=== PATIENT | female | born 1945 | race Caucasian/White ===

== ENCOUNTER 2018-02-14 09:08 | Emergency (ER) | payer MEDICARE, MEDICAID ==
[~2018-02-14] VITALS: Ht 162.6 cm; Wt 63.6 kg
[2018-02-14 09:30] VITALS: BP 142/87
[2018-02-14] MEDS ORDERED: HYDROcodone/acetaminophen 5mg/325mg tablet PO ONE (10:00)
[2018-02-14] MEDS ORDERED: ibuprofen tablet 400 MG TABLET PO ONE (10:20)
[2018-02-14] MEDS ORDERED: ibuprofen 200mg tablet PO ONE (10:30)
[2018-02-14] MEDS ORDERED: TRAM50TA2 PO (10:52)
[2018-02-14] MEDS ORDERED: CEPH500C5 PO (10:58)
== END 2018-02-14 11:10 | disposition home or self-care (01) ==
LOC: ER 09:08
DX: S42.031A Displaced fracture of lateral end of right clavicle, initial encounter for closed fracture (principal); S13.4XXA Sprain of ligaments of cervical spine, initial encounter; S40.011A Contusion of right shoulder, initial encounter; S60.512A Abrasion of left hand, initial encounter; S00.212A Abrasion of left eyelid and periocular area, initial encounter; I10 Essential (primary) hypertension; M19.90 Unspecified osteoarthritis, unspecified site; F17.210 Nicotine dependence, cigarettes, uncomplicated; V98.8XXA Other specified transport accidents, initial encounter; Y93.89 Activity, other specified; Y92.89 Other specified places as the place of occurrence of the external cause; Y99.9 Unspecified external cause status
CPT/HCPCS: 70450; 71045; 72125; 73030; 99284

== ENCOUNTER 2021-01-23 13:45 | Emergency (ER) | payer BC, MEDICAID ==
[~2021-01-23] VITALS: Ht 172.7 cm; Wt 52.3 kg
[2021-01-23 14:13] VITALS: BP 160/93
== END 2021-01-23 20:21 | disposition left against medical advice (07) ==
LOC: ER 13:45
DX: M25.512 Pain in left shoulder (principal); I10 Essential (primary) hypertension; M19.90 Unspecified osteoarthritis, unspecified site; F41.9 Anxiety disorder, unspecified
CPT/HCPCS: 73030; 99283

== ENCOUNTER 2021-06-19 19:49 | Inpatient (IN) | payer BC, MEDICAID ==
[~2021-06-19] VITALS: Ht 172.7 cm; Wt 47.0 kg
[2021-06-19 20:30] LABS: BASOPHILS % (AUTO) 0.1 % (0-1); EOSINOPHILS % (AUTO) 0 % (0-6); HEMATOCRIT 41.5 % (35.0-45.0); HEMOGLOBIN 14.2 g/dl (12.0-16.0); LYMPHOCYTES # (AUTO) 0.6 X10'3 (1.1-4.8); LYMPHOCYTES % (AUTO) 7.2 % (21-51); MEAN CORPUSCULAR HEMOGLOBIN 34.4 PG (27.0-31.0); MEAN CORPUSCULAR HGB CONC 34.1 g/dL (33.0-36.5); MEAN CORPUSCULAR VOLUME 100.7 FL (78-98); MONOCYTES # (AUTO) 0.8 X10'3 (0-0.9); MONOCYTES % (AUTO) 10.7 % (2-12); NEUTROPHILS # (AUTO) 6.3 X10'3 (1.8-7.7); PLATELET COUNT 210 X10'3 (140-440); RED BLOOD COUNT 4.13 X10'6 (4.20-5.60); RED CELL DISTRIBUTION WIDTH 12.7 % (11.5-14.5); WHITE BLOOD COUNT 7.6 X10'3 (4.5-11.0)
[2021-06-19 20:52] LABS: ALANINE AMINOTRANSFERASE 32 U/L (12-78); ALBUMIN 3.2 G/DL (3.4-5.0); ALBUMIN/GLOBULIN RATIO 0.8 (1.1-1.5); ALKALINE PHOSPHATASE 102 IU/L (46-116); ANION GAP 11 (8-16); ASPARTATE AMINO TRANSFERASE 33 U/L (10-37); BILIRUBIN,TOTAL 0.6 MG/DL (0.1-1.0); BLOOD UREA NITROGEN 8 MG/DL (7-18); BUN/CREATININE RATIO 21.1 (6.6-38.0); CALCIUM 8.9 MG/DL (8.5-10.1); CHLORIDE 86 MMOL/L (99-107); CREATININE 0.38 MG/DL (0.40-0.90); GLUCOSE 132 MG/DL (70-104); POTASSIUM 3.3 MMOL/L (3.5-5.1); SODIUM 128 MMOL/L (135-145); TOTAL CARBON DIOXIDE 31.3 MMOL/L (24-32); TOTAL PROTEIN 7.1 G/DL (6.4-8.2); eGFR > 90 ML/MIN
--- NOTE | 2021-06-19 21:03 | NUR ---
Critical result of Tropi 213 from lab. ERP and charge notified. Pt pink, alert, no acute/resp distress. PIV site c/d/i intact. Bed down, wheels locked, rails 2/2 up.
[2021-06-19] MEDS ORDERED: aspirin 325mg tablet PO ONE (23:00)
[2021-06-19] MEDS ORDERED: iohexol 350MG/ML 100ml bottle IV ONE (23:00)
--- NOTE | 2021-06-19 23:06 | NUR ---
Pt to CT via bed. Pt pink, alert, no acute impending distress. PIV site c/d/i s complication or adverse rxn.
--- NOTE | 2021-06-19 23:18 | NUR ---
Pt back from CT, pt medicated as ordered s complication or adverse rxn. Pt pink, awake, alert, no acute/resp distress.
[2021-06-19] MEDS ORDERED: albuterol 2.5 MG/3 ML nebule NEB ONE (23:45)
[2021-06-20] MEDS ORDERED: normal saline 1000ML IV soln IVB ONE (00:40)
[2021-06-20] MEDS ORDERED: HYDROcodone/acetaminophen 5mg/325mg tablet PO PRN (01:15)
[2021-06-20] MEDS ORDERED: magnesium hydroxide 30ml (MOM) UD suspension PO PRN (01:15)
[2021-06-20] MEDS ORDERED: magnesium Cl slow-release 64mg tablet PO PRN (01:15)
[2021-06-20] MEDS ORDERED: potassium Cl 20 mEq SR tablet PO PRN (01:15)
[2021-06-20] MEDS ORDERED: ondansetron/PF 4mg/2ml inj IV PRN (01:15)
[2021-06-20] MEDS ORDERED: acetaminophen 325mg tablet PO PRN ×2 (01:15)
[2021-06-20] MEDS ORDERED: potassium CL 10mEq/100ml bag 100 ML IV PRN (01:15)
[2021-06-20] MEDS ORDERED: magnesium 4gm in 100ml NS 100 ML IV PRN (01:15)
[2021-06-20] MEDS ORDERED: CefTRIAXone 2gm/NS 100ml IVPB 100 ML IV ONE (01:15)
[2021-06-20] MEDS ORDERED: magnesium 2GM in 50ml NS 50 ML IV PRN (01:15)
--- NOTE | 2021-06-20 01:15 | NUR ---
Pt repositioned for comfort due to pain from wound on back. Pt pink, alert, no acute distress. Pt states she is having quite a bit of abd pain and pain from her wound.
[2021-06-20] MEDS: potassium Cl 20 mEq SR tablet PO PRN ×3 (03:26→17:47)
[2021-06-20] MEDS: albuterol 2.5 MG/3 ML nebule NEB SCH ×2 (04:00→08:11)
[2021-06-20 04:16] VITALS: BP 142/82
--- NOTE | 2021-06-20 05:30 | NUR ---
pt 2 cigarettes placed in chart
[2021-06-20 06:00] VITALS: BP 157/81
[2021-06-20] MEDS ORDERED: methylPREDNISolone sod succ 125mg/2ml vial IV SCH (08:00)
[2021-06-20] MEDS: K and/or MAG REPLACEMENT MC SCH ×2 (08:00→19:29)
[2021-06-20] MEDS: heparin, porcine 5000 units/ml vial SQ SCH ×2 (08:45→20:12)
[2021-06-20] MEDS ORDERED: BUDE10.2 INH (10:34)
[2021-06-20] MEDS ORDERED: CITA40TA22 PO (10:34)
[2021-06-20] MEDS ORDERED: AMLO5TAB PO (10:34)
[2021-06-20] MEDS ORDERED: ALBU8.5H17 INH (10:34)
[2021-06-20] MEDS ORDERED: MONT10TA21 PO (10:34)
[2021-06-20 11:00] VITALS: BP 144/71
[2021-06-20] MEDS: furosemide 20 MG/2 ML vial IV SCH ×2 (11:59→20:13)
[2021-06-20 12:34] LABS: BASOPHILS % (AUTO) 0.1 % (0-1); EOSINOPHILS % (AUTO) 0 % (0-6); HEMATOCRIT 43.3 % (35.0-45.0); HEMOGLOBIN 14.6 g/dl (12.0-16.0); LYMPHOCYTES # (AUTO) 0.3 X10'3 (1.1-4.8); LYMPHOCYTES % (AUTO) 3.8 % (21-51); MEAN CORPUSCULAR HEMOGLOBIN 34.2 PG (27.0-31.0); MEAN CORPUSCULAR HGB CONC 33.8 g/dL (33.0-36.5); MEAN CORPUSCULAR VOLUME 101.2 FL (78-98); MEAN PLATELET VOLUME 8.6 FL (7.4-10.4); MONOCYTES # (AUTO) 0.3 X10'3 (0-0.9); MONOCYTES % (AUTO) 3.6 % (2-12); NEUTROPHILS # (AUTO) 8.2 X10'3 (1.8-7.7); NEUTROPHILS % (AUTO) 92.5 % (42-75); PLATELET COUNT 231 X10'3 (140-440); RED BLOOD COUNT 4.27 X10'6 (4.20-5.60); RED CELL DISTRIBUTION WIDTH 12.9 % (11.5-14.5); WHITE BLOOD COUNT 8.9 X10'3 (4.5-11.0)
[2021-06-20 12:58] LABS: ANION GAP 11 (8-16); BLOOD UREA NITROGEN 7 MG/DL (7-18); BUN/CREATININE RATIO 17.5 (6.6-38.0); CALCIUM 8.7 MG/DL (8.5-10.1); CHLORIDE 91 MMOL/L (99-107); GLUCOSE 99 MG/DL (70-104); POTASSIUM 3.7 MMOL/L (3.5-5.1); SODIUM 132 MMOL/L (135-145); eGFR > 90 ML/MIN
[2021-06-20] MEDS: cefTRIAXone 1g/NS 100ml IVPB 100 ML IV SCH (13:36)
[2021-06-20] MEDS: azithromycin 250mg tablet PO SCH (13:52)
--- NOTE | 2021-06-20 14:09 | NUR ---
Malnutrition consult: Pt reports 24-33 lb wt loss with decreased appetite per malnutrition risk screen with RN. Per H&P pt is a very poor historian. Current documented wt results in an underweight BMI however is not scaled and no recent scaled wt hx in EMR. Pt with no documented decrease in muscle strength or significant edema. Pt currently lacks a minimum of two criteria for malnutrition. Will continue to follow and further monitor malnutrition criteria. Addendum: 06/20/21 at [address] Amended: Links added.
[2021-06-20 15:00] VITALS: BP 126/72
[2021-06-20] MEDS: methylPREDNISolone sod succ 125mg/2ml vial IV SCH (16:00)
[2021-06-20] MEDS: ipratropium/albuterol 3ml nebule NEB SCH ×3 (17:26→23:00)
[2021-06-20 18:00] VITALS: BP 145/54
--- NOTE | 2021-06-20 18:47 | NUR ---
Problems reprioritized. Patient report given, questions answered & plan of care reviewed with Jeri ALVARADO, pt stable at transfer of care.
[2021-06-20 22:00] VITALS: BP 126/63
[2021-06-21] MEDS: ipratropium/albuterol 3ml nebule NEB SCH ×6 (00:17→23:12)
[2021-06-21 02:00] VITALS: BP 140/80
[2021-06-21] MEDS: methylPREDNISolone sod succ 125mg/2ml vial IV SCH ×3 (02:01→16:58)
[2021-06-21 06:00] VITALS: BP 157/79
--- NOTE | 2021-06-21 06:54 | NUR ---
Problems reprioritized. Patient report given, questions answered & plan of care reviewed with PHILL ALVARADO.
[2021-06-21 07:27] LABS: BASOPHILS % (AUTO) 0.1 % (0-1); EOSINOPHILS % (AUTO) 0 % (0-6); HEMATOCRIT 43.3 % (35.0-45.0); HEMOGLOBIN 14.8 g/dl (12.0-16.0); LYMPHOCYTES # (AUTO) 0.4 X10'3 (1.1-4.8); LYMPHOCYTES % (AUTO) 5.3 % (21-51); MEAN CORPUSCULAR HEMOGLOBIN 34.9 PG (27.0-31.0); MEAN CORPUSCULAR HGB CONC 34.2 g/dL (33.0-36.5); MEAN CORPUSCULAR VOLUME 101.9 FL (78-98); MEAN PLATELET VOLUME 8.2 FL (7.4-10.4); MONOCYTES # (AUTO) 0.2 X10'3 (0-0.9); MONOCYTES % (AUTO) 3.1 % (2-12); NEUTROPHILS # (AUTO) 7.1 X10'3 (1.8-7.7); NEUTROPHILS % (AUTO) 91.5 % (42-75); PLATELET COUNT 259 X10'3 (140-440); RED BLOOD COUNT 4.25 X10'6 (4.20-5.60); RED CELL DISTRIBUTION WIDTH 12.7 % (11.5-14.5); WHITE BLOOD COUNT 7.8 X10'3 (4.5-11.0)
[2021-06-21 07:36] LABS: ALANINE AMINOTRANSFERASE 31 U/L (12-78); ALBUMIN 2.8 G/DL (3.4-5.0); ALBUMIN/GLOBULIN RATIO 0.8 (1.1-1.5); ALKALINE PHOSPHATASE 89 IU/L (46-116); ANION GAP 13 (8-16); ASPARTATE AMINO TRANSFERASE 25 U/L (10-37); BILIRUBIN,TOTAL 0.6 MG/DL (0.1-1.0); BLOOD UREA NITROGEN 13 MG/DL (7-18); CALCIUM 8.7 MG/DL (8.5-10.1); CHLORIDE 94 MMOL/L (99-107); GLUCOSE 92 MG/DL (70-104); PHOSPHORUS 2.7 MG/DL (2.3-4.5); SODIUM 136 MMOL/L (135-145); TOTAL CARBON DIOXIDE 29.4 MMOL/L (24-32); TOTAL PROTEIN 6.3 G/DL (6.4-8.2); eGFR > 90 ML/MIN
[2021-06-21] MEDS: K and/or MAG REPLACEMENT MC SCH ×2 (08:00→19:50)
[2021-06-21] MEDS: cefTRIAXone 1g/NS 100ml IVPB 100 ML IV SCH (08:02)
[2021-06-21] MEDS: furosemide 20 MG/2 ML vial IV SCH ×2 (08:03→19:49)
[2021-06-21] MEDS: citalopram 20mg tablet PO SCH (08:04)
[2021-06-21] MEDS: heparin, porcine 5000 units/ml vial SQ SCH ×2 (08:04→19:50)
[2021-06-21] MEDS: montelukast 10mg tablet PO SCH (08:04)
[2021-06-21] MEDS: azithromycin 250mg tablet PO SCH (08:05)
[2021-06-21] MEDS: amLODIPine 5mg tablet PO SCH (08:05)
[2021-06-21 11:00] VITALS: BP 131/69
[2021-06-21 18:00] VITALS: BP 118/56
[2021-06-21 22:00] VITALS: BP 161/75
[2021-06-22] MEDS: methylPREDNISolone sod succ 125mg/2ml vial IV SCH ×5 (00:09→19:25)
[2021-06-22 02:00] VITALS: BP 142/77
[2021-06-22] MEDS: ipratropium/albuterol 3ml nebule NEB SCH ×6 (03:29→23:23)
[2021-06-22 06:00] VITALS: BP 143/73
[2021-06-22 06:02] LABS: BASOPHILS % (AUTO) 0.1 % (0-1); EOSINOPHILS % (AUTO) 0 % (0-6); HEMATOCRIT 41.1 % (35.0-45.0); HEMOGLOBIN 13.9 g/dl (12.0-16.0); LYMPHOCYTES # (AUTO) 0.3 X10'3 (1.1-4.8); LYMPHOCYTES % (AUTO) 7.6 % (21-51); MEAN CORPUSCULAR HEMOGLOBIN 34.1 PG (27.0-31.0); MEAN CORPUSCULAR HGB CONC 33.7 g/dL (33.0-36.5); MEAN CORPUSCULAR VOLUME 101.1 FL (78-98); MEAN PLATELET VOLUME 8.1 FL (7.4-10.4); MONOCYTES # (AUTO) 0.3 X10'3 (0-0.9); MONOCYTES % (AUTO) 7.9 % (2-12); NEUTROPHILS # (AUTO) 3.1 X10'3 (1.8-7.7); NEUTROPHILS % (AUTO) 84.4 % (42-75); PLATELET COUNT 287 X10'3 (140-440); RED BLOOD COUNT 4.07 X10'6 (4.20-5.60); RED CELL DISTRIBUTION WIDTH 12.9 % (11.5-14.5); WHITE BLOOD COUNT 3.7 X10'3 (4.5-11.0)
[2021-06-22 06:19] LABS: ALANINE AMINOTRANSFERASE 27 U/L (12-78); ALBUMIN 2.9 G/DL (3.4-5.0); ALBUMIN/GLOBULIN RATIO 0.8 (1.1-1.5); ALKALINE PHOSPHATASE 78 IU/L (46-116); ANION GAP 4 (8-16); ASPARTATE AMINO TRANSFERASE 21 U/L (10-37); BILIRUBIN,TOTAL 0.4 MG/DL (0.1-1.0); BLOOD UREA NITROGEN 14 MG/DL (7-18); BUN/CREATININE RATIO 31.1 (6.6-38.0); CALCIUM 8.5 MG/DL (8.5-10.1); CHLORIDE 97 MMOL/L (99-107); CREATININE 0.45 MG/DL (0.40-0.90); GLUCOSE 121 MG/DL (70-104); PHOSPHORUS 3.2 MG/DL (2.3-4.5); POTASSIUM 3.7 MMOL/L (3.5-5.1); SODIUM 136 MMOL/L (135-145); TOTAL CARBON DIOXIDE 34.6 MMOL/L (24-32); TOTAL PROTEIN 6.4 G/DL (6.4-8.2); eGFR > 90 ML/MIN
--- NOTE | 2021-06-22 06:29 | NUR ---
Problems reprioritized. Patient report given, questions answered & plan of care reviewed with Nigel ALVARADO.
[2021-06-22] MEDS: cefTRIAXone 1g/NS 100ml IVPB 100 ML IV SCH (07:28)
[2021-06-22] MEDS: montelukast 10mg tablet PO SCH (07:32)
[2021-06-22] MEDS: furosemide 20 MG/2 ML vial IV SCH ×2 (07:32→19:22)
[2021-06-22] MEDS: heparin, porcine 5000 units/ml vial SQ SCH ×2 (07:32→19:22)
[2021-06-22] MEDS: azithromycin 250mg tablet PO SCH (07:33)
[2021-06-22] MEDS: citalopram 20mg tablet PO SCH (07:33)
[2021-06-22] MEDS: amLODIPine 5mg tablet PO SCH (07:33)
[2021-06-22] MEDS: K and/or MAG REPLACEMENT MC SCH ×2 (08:00→19:23)
[2021-06-22 11:00] VITALS: BP 125/60
--- NOTE | 2021-06-22 15:19 | NUR ---
O2 Sat at rest on room air:90___% If below 89%: Recovery O2 Sat at rest on _95__LPM:___%:___% via Nasal Canula (mask/nasal cannula, etc..) No further documentation is necessary. If O2 Sat did not drop below 89% on room air,ambulate patient on room air. O2 Sat while ambulating on room air:__80_% Recovery O2 Sat while ambulating on _93_LPM:___% No further documentation is necessary. If patient does not drop below 89% while ambulating, he/she does not qualify for home O2. Addendum: 06/22/21 at 1538 by Nigel Lunsford RN O2 Sat at rest on room air:_90__% If below 89%: Recovery O2 Sat at rest on __3_LPM:__95_%:___% via__nasal canula (mask/nasal cannula, etc..) No further documentation is necessary. If O2 Sat did not drop below 89% on room air,ambulate patient on room air. O2 Sat while ambulating on room air:_80__% Recovery O2 Sat while ambulating on 3___LPM:__93_% No further documentation is necessary. If patient does not drop below 89% while ambulating, he/she does not qualify for home O2.
[2021-06-22 18:00] VITALS: BP_SYST 125; BP_SYST 126; BP_DIAS 60; BP_DIAS 63
[2021-06-22] MEDS: lactose-reduced food (Ensure Enlive) - 237ml bottle PO SCH (18:00)
[2021-06-22] MEDS ORDERED: benzonatate 100mg capsule PO PRN (20:20)
[2021-06-23] VITALS (11 sets, daily range): BP systolic 116–137; BP diastolic 56–73
[2021-06-23] MEDS: ipratropium/albuterol 3ml nebule NEB SCH ×5 (04:10→19:53)
[2021-06-23 06:01] LABS: BASOPHILS % (AUTO) 0.1 % (0-1); EOSINOPHILS % (AUTO) 0 % (0-6); HEMATOCRIT 39.7 % (35.0-45.0); HEMOGLOBIN 13.5 g/dl (12.0-16.0); LYMPHOCYTES # (AUTO) 0.5 X10'3 (1.1-4.8); LYMPHOCYTES % (AUTO) 13.4 % (21-51); MEAN CORPUSCULAR HEMOGLOBIN 34.3 PG (27.0-31.0); MEAN CORPUSCULAR HGB CONC 34.1 g/dL (33.0-36.5); MEAN CORPUSCULAR VOLUME 100.6 FL (78-98); MEAN PLATELET VOLUME 7.4 FL (7.4-10.4); MONOCYTES # (AUTO) 0.6 X10'3 (0-0.9); MONOCYTES % (AUTO) 16.7 % (2-12); NEUTROPHILS # (AUTO) 2.6 X10'3 (1.8-7.7); NEUTROPHILS % (AUTO) 69.8 % (42-75); PLATELET COUNT 306 X10'3 (140-440); RED BLOOD COUNT 3.95 X10'6 (4.20-5.60); RED CELL DISTRIBUTION WIDTH 12.9 % (11.5-14.5); WHITE BLOOD COUNT 3.8 X10'3 (4.5-11.0)
[2021-06-23 06:17] LABS: ALANINE AMINOTRANSFERASE 28 U/L (12-78); ALBUMIN 2.9 G/DL (3.4-5.0); ALBUMIN/GLOBULIN RATIO 0.9 (1.1-1.5); ALKALINE PHOSPHATASE 71 IU/L (46-116); ANION GAP 4 (8-16); ASPARTATE AMINO TRANSFERASE 19 U/L (10-37); BILIRUBIN,TOTAL 0.4 MG/DL (0.1-1.0); BLOOD UREA NITROGEN 13 MG/DL (7-18); BUN/CREATININE RATIO 25.5 (6.6-38.0); CALCIUM 8.5 MG/DL (8.5-10.1); CHLORIDE 98 MMOL/L (99-107); CHOLESTEROL 190 MG/DL (0-200); CREATININE 0.51 MG/DL (0.40-0.90); GLUCOSE 121 MG/DL (70-104); HDL CHOLESTEROL 95 MG/DL (35-60); LDL CHOLESTEROL 77 MG/DL (50-100); MAGNESIUM 1.9 MG/DL (1.5-2.4); PHOSPHORUS 4.2 MG/DL (2.3-4.5); POTASSIUM 3.3 MMOL/L (3.5-5.1); SODIUM 140 MMOL/L (135-145); TOTAL PROTEIN 6.2 G/DL (6.4-8.2); TRIGLYCERIDES 65 MG/DL (20-135); eGFR > 90 ML/MIN
--- NOTE | 2021-06-23 06:37 | NUR ---
Problems reprioritized. Patient report given, questions answered & plan of care reviewed with Nigel ALVARADO.
[2021-06-23 06:54] LABS: PLATELET ESTIMATE NORMAL; TOTAL CELLS COUNTED 100
[2021-06-23] MEDS: lactose-reduced food (Ensure Enlive) - 237ml bottle PO SCH ×3 (08:00→18:00)
[2021-06-23] MEDS ORDERED: nitroGLYCERIN 0.4mg SUBLingual tab SL PRN (08:35)
[2021-06-23] MEDS ORDERED: regadenoson 0.4mg/5ml syringe IV PRN (08:35)
[2021-06-23] MEDS ORDERED: metoprolol tartrate 1mg/ml inj IV PRN (08:35)
[2021-06-23] MEDS ORDERED: potassium Cl 20 mEq SR tablet PO PRN (09:10)
[2021-06-23] MEDS ORDERED: potassium Cl 20mEq/100mL bag 100 ML IV PRN (09:10)
[2021-06-23] MEDS ORDERED: potassium Cl 40MEQ/1/2NS 520ml 520 ML IV PRN (09:10)
[2021-06-23] MEDS ORDERED: potassium Cl 40MEQ/250ML bag 250 ML IV PRN (09:10)
[2021-06-23] MEDS ORDERED: potassium CL 10mEq/100ml bag 100 ML IV PRN (09:10)
[2021-06-23] MEDS: citalopram 20mg tablet PO SCH (09:14)
[2021-06-23] MEDS: montelukast 10mg tablet PO SCH (09:14)
[2021-06-23] MEDS: amLODIPine 5mg tablet PO SCH (09:15)
[2021-06-23] MEDS: azithromycin 250mg tablet PO SCH (09:15)
[2021-06-23] MEDS: cefTRIAXone 1g/NS 100ml IVPB 100 ML IV SCH (09:16)
[2021-06-23] MEDS: heparin, porcine 5000 units/ml vial SQ SCH ×2 (09:16→19:39)
[2021-06-23] MEDS: methylPREDNISolone sod succ 125mg/2ml vial IV SCH ×2 (09:16→19:38)
[2021-06-23] MEDS: furosemide 20 MG/2 ML vial IV SCH ×2 (09:16→19:41)
[2021-06-23] MEDS ORDERED: aminophylline 500mg/20ml vial ONE (09:40)
[2021-06-23 13:53] LABS: HEMOGLOBIN A1C 4.6 % (4.5-6.2)
[2021-06-23] MEDS: K and/or MAG REPLACEMENT MC SCH (20:00)
[2021-06-24] MEDS: ipratropium/albuterol 3ml nebule NEB SCH ×3 (00:02→07:35)
[2021-06-24 02:00] VITALS: BP 97/58
[2021-06-24 06:00] VITALS: BP 139/67
[2021-06-24 06:11] LABS: ALANINE AMINOTRANSFERASE 30 U/L (12-78); ALBUMIN 2.8 G/DL (3.4-5.0); ALBUMIN/GLOBULIN RATIO 0.9 (1.1-1.5); ALKALINE PHOSPHATASE 67 IU/L (46-116); ANION GAP 2 (8-16); ASPARTATE AMINO TRANSFERASE 21 U/L (10-37); BILIRUBIN,TOTAL 0.4 MG/DL (0.1-1.0); BLOOD UREA NITROGEN 18 MG/DL (7-18); BUN/CREATININE RATIO 32.7 (6.6-38.0); CALCIUM 8.5 MG/DL (8.5-10.1); CHLORIDE 99 MMOL/L (99-107); CREATININE 0.55 MG/DL (0.40-0.90); GLUCOSE 113 MG/DL (70-104); MAGNESIUM 2.1 MG/DL (1.5-2.4); PHOSPHORUS 4.5 MG/DL (2.3-4.5); POTASSIUM 3.9 MMOL/L (3.5-5.1); SODIUM 141 MMOL/L (135-145); TOTAL CARBON DIOXIDE 39.9 MMOL/L (24-32); eGFR > 90 ML/MIN
[2021-06-24 06:16] LABS: BASOPHILS % (AUTO) 0.1 % (0-1); EOSINOPHILS % (AUTO) 0 % (0-6); HEMATOCRIT 41.6 % (35.0-45.0); HEMOGLOBIN 14.2 g/dl (12.0-16.0); LYMPHOCYTES # (AUTO) 0.7 X10'3 (1.1-4.8); LYMPHOCYTES % (AUTO) 16.5 % (21-51); MEAN CORPUSCULAR HEMOGLOBIN 34.7 PG (27.0-31.0); MEAN CORPUSCULAR HGB CONC 34.2 g/dL (33.0-36.5); MEAN CORPUSCULAR VOLUME 101.5 FL (78-98); MEAN PLATELET VOLUME 7.4 FL (7.4-10.4); MONOCYTES # (AUTO) 0.7 X10'3 (0-0.9); MONOCYTES % (AUTO) 17.3 % (2-12); NEUTROPHILS # (AUTO) 2.8 X10'3 (1.8-7.7); NEUTROPHILS % (AUTO) 66.1 % (42-75); PLATELET COUNT 320 X10'3 (140-440); RED BLOOD COUNT 4.09 X10'6 (4.20-5.60); WHITE BLOOD COUNT 4.2 X10'3 (4.5-11.0)
[2021-06-24] MEDS: K and/or MAG REPLACEMENT MC SCH (08:00)
[2021-06-24] MEDS: cefTRIAXone 1g/NS 100ml IVPB 100 ML IV SCH (08:07)
[2021-06-24] MEDS: heparin, porcine 5000 units/ml vial SQ SCH (08:08)
[2021-06-24 08:09] VITALS: BP_SYST 139
[2021-06-24] MEDS: furosemide 20 MG/2 ML vial IV SCH (08:09)
[2021-06-24] MEDS: citalopram 20mg tablet PO SCH (08:09)
[2021-06-24] MEDS: azithromycin 250mg tablet PO SCH (08:09)
[2021-06-24] MEDS: montelukast 10mg tablet PO SCH (08:09)
[2021-06-24] MEDS: amLODIPine 5mg tablet PO SCH (08:09)
[2021-06-24] MEDS: lactose-reduced food (Ensure Enlive) - 237ml bottle PO SCH (08:17)
[2021-06-24] MEDS ORDERED: CEFD300C3 PO (09:32)
[2021-06-24] MEDS ORDERED: PRED10TA23 PO (09:32)
--- NOTE | 2021-06-24 10:00 | NUR ---
Patient discharge home alert and orient , discharge instructions was discussed.
== END 2021-06-24 10:08 | disposition home or self-care (01) | DRG 190 ==
LOC: ER 19:49 → ED HOLD 06-20 01:19 → PCU 3S 06-20 03:00
PROVIDERS: ADMIT Internal Medicine; ATTEND Family Medicine
PROC: B32T1ZZ Computerized Tomography (CT Scan) of Left Pulmonary Artery using Low Osmolar Contrast (ICD-10-PCS; principal; 2021-06-19)
PROC: B3201ZZ Computerized Tomography (CT Scan) of Thoracic Aorta using Low Osmolar Contrast (ICD-10-PCS; 2021-06-19)
PROC: B32S1ZZ Computerized Tomography (CT Scan) of Right Pulmonary Artery using Low Osmolar Contrast (ICD-10-PCS; 2021-06-19)
PROC: 4A02XM4 Measurement of Cardiac Total Activity, External Approach (ICD-10-PCS; 2021-06-23)
PROC: 3E073KZ Introduction of Other Diagnostic Substance into Coronary Artery, Percutaneous Approach (ICD-10-PCS; 2021-06-23)
DX: J44.1 Chronic obstructive pulmonary disease with (acute) exacerbation (principal); I21.A1 Myocardial infarction type 2; E43 Unspecified severe protein-calorie malnutrition; I50.33 Acute on chronic diastolic (congestive) heart failure; E87.1 Hypo-osmolality and hyponatremia; Z68.1 Body mass index [BMI] 19.9 or less, adult; I11.0 Hypertensive heart disease with heart failure; Z20.822 Contact with and (suspected) exposure to COVID-19; M19.90 Unspecified osteoarthritis, unspecified site; F17.210 Nicotine dependence, cigarettes, uncomplicated; M81.0 Age-related osteoporosis without current pathological fracture; F41.9 Anxiety disorder, unspecified; R09.02 Hypoxemia; Z79.899 Other long term (current) drug therapy
CPT/HCPCS: 36415; 71045; 71275; 78452; 80048; 80053; 80061; 83036; 83605; 83735; 83880; 84100; 84145; 84443; 84484; 85007; 85025; 87040; 87081; 87635; 93005; 93017; 93306; 94640; 94760; 97161; 97530; 99285; A9500; C9803; G0378; J0280; J0696; J1644; J1940; J2930; J7030; Q9967

== ENCOUNTER 2021-09-15 19:15 | Emergency (ER) | payer BC, MEDICAID ==
[~2021-09-15] VITALS: Ht 172.7 cm; Wt 47.5 kg
[~2021-09-15 19:15] MED LIST: ALBU8.5H17 INH; AMLO5TAB PO; BUDE10.2 INH; CITA40TA22 PO; MONT10TA21 PO
[2021-09-15] MEDS ORDERED: folic acid 1mg/0.2ml inj IV ONE (19:20)
[2021-09-15] MEDS ORDERED: normal saline 1000ML IV soln IVB ONE (19:20)
[2021-09-15] MEDS ORDERED: thiamine 100mg/ml 2ml inj. IV ONE (19:20)
[2021-09-15 19:30] VITALS: BP 128/73
[2021-09-15 19:37] LABS: BASOPHILS # (AUTO) 0.1 X10'3 (0-0.2); BASOPHILS % (AUTO) 1.5 % (0-1); EOSINOPHILS # (AUTO) 0.1 X10'3 (0-0.9); EOSINOPHILS % (AUTO) 1.5 % (0-6); HEMATOCRIT 35.7 % (35.0-45.0); HEMOGLOBIN 12.1 g/dl (12.0-16.0); LYMPHOCYTES # (AUTO) 2.5 X10'3 (1.1-4.8); LYMPHOCYTES % (AUTO) 47.1 % (21-51); MEAN CORPUSCULAR HEMOGLOBIN 35.7 PG (27.0-31.0); MEAN CORPUSCULAR HGB CONC 33.9 g/dL (33.0-36.5); MEAN CORPUSCULAR VOLUME 105.5 FL (78-98); MEAN PLATELET VOLUME 7.3 FL (7.4-10.4); MONOCYTES # (AUTO) 0.4 X10'3 (0-0.9); MONOCYTES % (AUTO) 7.1 % (2-12); NEUTROPHILS # (AUTO) 2.3 X10'3 (1.8-7.7); NEUTROPHILS % (AUTO) 42.8 % (42-75); PLATELET COUNT 213 X10'3 (140-440); RED BLOOD COUNT 3.38 X10'6 (4.20-5.60); RED CELL DISTRIBUTION WIDTH 12.9 % (11.5-14.5); WHITE BLOOD COUNT 5.4 X10'3 (4.5-11.0)
[2021-09-15 19:50] LABS: ALANINE AMINOTRANSFERASE 35 U/L (12-78); ALBUMIN 2.9 G/DL (3.4-5.0); ALBUMIN/GLOBULIN RATIO 1.1 (1.1-1.5); ALKALINE PHOSPHATASE 84 IU/L (46-116); ANION GAP 7 (8-16); ASPARTATE AMINO TRANSFERASE 37 U/L (10-37); BILIRUBIN,TOTAL 0.2 MG/DL (0.1-1.0); BLOOD UREA NITROGEN 5 MG/DL (7-18); BUN/CREATININE RATIO 7.9 (6.6-38.0); CHLORIDE 109 MMOL/L (99-107); CREATININE 0.63 MG/DL (0.40-0.90); GLUCOSE 71 MG/DL (70-104); POTASSIUM 3.8 MMOL/L (3.5-5.1); SODIUM 145 MMOL/L (135-145); TOTAL CARBON DIOXIDE 28.8 MMOL/L (24-32); TOTAL PROTEIN 5.6 G/DL (6.4-8.2); eGFR > 90 ML/MIN
[2021-09-15 19:53] LABS: ETHANOL 0.236 GM/DL (0.0-0.010)
--- NOTE | 2021-09-15 21:31 | NUR ---
Patient refusing to wait for Taxi, advised against leaving as she is ETOH and has no other way home. She left the ER and [employer] notified.
== END 2021-09-15 21:43 | disposition home or self-care (01) ==
LOC: ER 19:15
DX: F10.920 Alcohol use, unspecified with intoxication, uncomplicated (principal); J44.9 Chronic obstructive pulmonary disease, unspecified; R47.81 Slurred speech; R06.02 Shortness of breath; H53.8 Other visual disturbances; R19.7 Diarrhea, unspecified; I10 Essential (primary) hypertension; M19.90 Unspecified osteoarthritis, unspecified site; F41.9 Anxiety disorder, unspecified; Z79.899 Other long term (current) drug therapy; Y90.0 Blood alcohol level of less than 20 mg/100 ml
CPT/HCPCS: 70450; 71045; 80053; 80320; 84484; 85025; 93005; 99285